=== PATIENT | male | born 1980 | race Caucasian/White ===

== ENCOUNTER 2018-12-13 21:39 | Emergency (ER) | payer OTHER ==
[~2018-12-13] VITALS: Ht 162.6 cm; Wt 88.5 kg
[2018-12-13 21:48] VITALS: Ht 162.6 cm; Wt 88.5 kg
[2018-12-13 23:36] LABS: BASOPHIL % 0.8 % (0-2); PLATELET COUNT 281 x10^3mcL (130-400); RED CELL DISTRIBUTION WIDTH 13.9 % (11.5-14.5)
[2018-12-13 23:40] LABS: microscopic required? NO
[2018-12-13 23:44] LABS: CALCIUM 8.8 mg/dL (8.5-10.1); CARBON DIOXIDE 29.6 mmol/L (21-32); CHLORIDE SERUM 101 mmol/L (98-107); CREATININE SERUM 0.7 mg/dL (0.7-1.3); GFR1 > 60 mL/min; GLUCOSE SERUM 99 mg/dL (74-106); POTASSIUM SERUM 4.2 mmol/L (3.5-5.1); SODIUM SERUM 138 mmol/L (136-145)
[2018-12-13 23:49] LABS: ALBUMIN 4.2 g/dL (3.4-5.0); ALKALINE PHOSPHATASE 76 U/L (46-116); ALT/SGPT 64 U/L (16-63); AST/SGOT 25 U/L (15-37); BILIRUBIN TOTAL 0.2 mg/dL (0.20-1.00); CHOLESTEROL 169 mg/dL (<200); PHOSPHOROUS 4.1 mg/dL (2.5-4.9); TOTAL PROTEIN, SERUM 8.2 g/dL (6.4-8.2)
[2018-12-13 23:51] LABS: HDL CHOLESTEROL 70 mg/dL (40-60)
[2018-12-14 00:23] LABS: urine erythrocyte NEGATIVE (NEGATIVE)
[2018-12-14 00:55] LABS: AMPHETAMINE QUAL UR NONE DETECTED (See below)
[2018-12-14 02:44] VITALS: BP 128/83
== END 2018-12-14 02:44 | disposition home or self-care (01) ==
LOC: ED 21:39
PROVIDERS: Emergency Medicine
DX: R51 Headache (principal); R20.2 Paresthesia of skin; H57.89 Other specified disorders of eye and adnexa
CPT/HCPCS: 36415